=== PATIENT | female | born 1985 | race Two or more races ===

== ENCOUNTER 2017-07-19 21:54 | Emergency (ER) | payer OTHER ==
[~2017-07-19] VITALS: Ht 154.9 cm; Wt 59.0 kg
[~2017-07-19 21:54] MED LIST: BACTROBAN OINT22 GM TP; CEFADROXIL500 MG PO; CELEBREX100 MG PO; DESPEC-DM TABL1 EACH PO; KETO10TA2 PO; MONISTAT 31 EA VG; ZITHROMAX500 MG PO
== END 2017-07-19 22:58 | disposition home or self-care (01) ==
LOC: ER 21:54
DX: J11.1 Influenza due to unidentified influenza virus with other respiratory manifestations (principal); B34.9 Viral infection, unspecified

== ENCOUNTER → 2018-12-05 | Emergency (ER) | payer OTHER ==
[~2018-12-05] VITALS: Ht 157.5 cm; Wt 56.7 kg
== END | disposition left against medical advice (07) ==
LOC: ER 23:42
DX: K52.9 Noninfective gastroenteritis and colitis, unspecified (principal)